=== PATIENT | female | born 1960 ===

== ENCOUNTER 2019-08-19 14:23 | Outpatient (CLI) | payer BC ==
--- NOTE | 2019-08-19 15:17 | MMO ---
Bilateral MAMMO Bilat Screen [facility]. CLINICAL HISTORY: Patient is 58 years old and is seen for screening. The patient has no family history of breast cancer. The patient has no personal history of cancer. The patient has a history of bilateral Explantation in 2014, bilateral Implants in 2014 and bilateral Implants in 2001. VIEWS: The views performed were: bilateral craniocaudal; bilateral craniocaudal with tomosynthesis; bilateral mediolateral oblique; bilateral mediolateral oblique with tomosynthesis; and bilateral Implant displaced. This study has been interpreted with the assistance of computer-aided detection. MAMMOGRAM FINDINGS: There are scattered fibroglandular densities. There are no suspicious masses, suspicious calcifications, or new areas of architectural distortion. IMPRESSION: THERE IS NO MAMMOGRAPHIC EVIDENCE OF MALIGNANCY. A ROUTINE FOLLOW-UP MAMMOGRAM IN 1 YEAR IS RECOMMENDED. THE RESULTS OF THIS EXAM WERE SENT TO THE PATIENT. ACR BI-RADS Category 1 - Negative MAMMOGRAPHY NOTE: 1. A negative mammogram report should not delay a biopsy if a dominant of clinically suspicious mass is present. 2. Approximately 10% to 15% of breast cancers are not detected by mammography. 3. Adenosis and dense breasts may obscure an underlying neoplasm. Reported by: OLI HERNANDEZ MD Electonically Signed: [id number]
--- NOTE | 2019-08-19 15:18 | BD ---
BONE DENSITOMETRY: Date: 08/19/19 HISTORY: 58-year-old female for postmenopausal osteoporosis screening. FINDINGS: Lumbar Spine: BMD (g/cm2) L1 0.854 T-Score: -1.2 L2 0.848 T-Score: -1.6 L3 0.827 T-Score: -2.3 L4 0.888 T-Score: -1.6 Total 0.855 T-Score: -1.7 Left Femoral Neck: 0.652 T-Score: -1.8 Total Femur: 0.829 T-Score: -0.9 IMPRESSION: Bone mineral density of the lumbar spine and femoral neck both indicate osteopenia. 10 YEAR FRACTURE RISK: Major osteoporotic fracture: 4.2% Hip fracture: 0.4% POS: [facility]
== END 2019-08-19 14:24 | disposition home or self-care (01) ==
LOC: BICMAMMO 14:23
PROVIDERS: ATTEND Family Medicine
DX: Z12.31 Encounter for screening mammogram for malignant neoplasm of breast (principal); Z13.820 Encounter for screening for osteoporosis; M85.89 Other specified disorders of bone density and structure, multiple sites; Z98.82 Breast implant status
CPT/HCPCS: 77063; 77067; 77080